=== PATIENT | female | born 1935 | race Caucasian/White ===

== ENCOUNTER → 2017-04-23 | Outpatient (CLI) | payer MEDICARE, BC ==
[~2017-04-23] MED LIST: ALDACTAZIDE 25/1 TAB; LORTAB 5/500 TA1 TA1 PO
== END | disposition home or self-care (01) ==
LOC: CSSDAY 11:04
DX: M81.0 Age-related osteoporosis without current pathological fracture (principal)
CPT/HCPCS: 36415; 82310; 96372; J0897